=== PATIENT | female | born 1955 | race Caucasian/White ===

== ENCOUNTER 2017-07-21 11:22 | Outpatient (CLI) | payer OTHER | END 2017-07-21 11:23 | disposition home or self-care (01) | LOC: BICMAMMO 11:22 | PROVIDERS: ATTEND Obstetrics & Gynecology | DX: Z12.31 Encounter for screening mammogram for malignant neoplasm of breast (principal) | CPT/HCPCS: 77063; 77067 ==

== ENCOUNTER 2018-03-26 14:52 | Outpatient (CLI) | payer OTHER ==
--- NOTE | 2018-03-26 16:29 | ULT ---
RIGHT BREAST ULTRASOUND: History: Palpable painful mass along the outer aspect of the right nipple at the 9 o'clock position. Comparison: Mammogram, 03-26-18. Technique: Multiplanar grayscale and color doppler images were obtained in a targeted ultrasound of t he subareolar region of the right breast. FINDINGS: At the area of palpable abnormality, normal appearing breast parenchyma is seen. No cyst is seen. No solid mass is seen. No suspicious shadowing is present. IMPRESSION: BIRADS category 1 - negative. Annual screening mammography is recommended. POS: OFF
== END 2018-03-26 14:53 | disposition home or self-care (01) ==
LOC: BICMAMMO 14:52
PROVIDERS: ATTEND Obstetrics & Gynecology
DX: N63.13 Unspecified lump in the right breast, lower outer quadrant (principal)
CPT/HCPCS: G0279

== ENCOUNTER 2018-07-28 10:22 | Outpatient (CLI) | payer OTHER | END 2018-07-28 10:23 | disposition home or self-care (01) | LOC: BICMAMMO 10:22 | PROVIDERS: ATTEND Obstetrics & Gynecology | DX: Z12.31 Encounter for screening mammogram for malignant neoplasm of breast (principal) | CPT/HCPCS: 77063; 77067 ==

== ENCOUNTER 2019-12-24 10:17 | Outpatient (CLI) | payer MEDICARE ==
--- NOTE | 2019-12-24 11:46 | MMO ---
Bilateral MAMMO Bilat Screen [facility]. CLINICAL HISTORY: Patient is 64 years old and is seen for screening. The patient has no family history of breast cancer. The patient has no personal history of cancer. The patient has a history of right Cyst Aspiration in November, and right Cyst Aspiration in 09/2003 - benign. VIEWS: The views performed were: bilateral craniocaudal with tomosynthesis and bilateral mediolateral oblique with tomosynthesis. FILMS COMPARED: The present examination has been compared to prior imaging studies performed at [facility] on 07/09/2016, 07/21/2017, 03/26/2018 and 07/28/2018. This study has been interpreted with the assistance of computer-aided detection. MAMMOGRAM FINDINGS: The breasts are heterogeneously dense, which could obscure a lesion on mammography. There is a stable area of architectural distortion seen in the upper-outer region of the right breast. There are no suspicious masses, suspicious calcifications, or new areas of architectural distortion. IMPRESSION: THERE IS NO MAMMOGRAPHIC EVIDENCE OF MALIGNANCY. A ROUTINE FOLLOW-UP MAMMOGRAM IN 1 YEAR IS RECOMMENDED. THE RESULTS OF THIS EXAM WERE SENT TO THE PATIENT. ACR BI-RADS Category 2 - Benign finding MAMMOGRAPHY NOTE: 1. A negative mammogram report should not delay a biopsy if a dominant of clinically suspicious mass is present. 2. Approximately 10% to 15% of breast cancers are not detected by mammography. 3. Adenosis and dense breasts may obscure an underlying neoplasm. Reported by: DONNA FAJARDO MD Electonically Signed: [id number]
== END 2019-12-24 10:18 | disposition home or self-care (01) ==
LOC: BICMAMMO 10:17
PROVIDERS: ATTEND Obstetrics & Gynecology
DX: Z12.31 Encounter for screening mammogram for malignant neoplasm of breast (principal); Z98.890 Other specified postprocedural states
CPT/HCPCS: 77063; 77067

== ENCOUNTER 2021-05-07 15:19 | Outpatient (CLI) | payer MEDICARE | END 2021-05-07 15:20 | disposition home or self-care (01) | LOC: BICMAMMO 15:19 | PROVIDERS: ATTEND Obstetrics & Gynecology | DX: Z12.31 Encounter for screening mammogram for malignant neoplasm of breast (principal) | CPT/HCPCS: 77063; 77067 ==

== ENCOUNTER 2022-12-13 19:00 | Outpatient (CLI) | payer MEDICARE | END 2022-12-13 19:01 | disposition home or self-care (01) | LOC: SLEEPLAB 19:00 | PROVIDERS: ATTEND Nurse Practitioner Family | DX: G47.33 Obstructive sleep apnea (adult) (pediatric) (principal) | CPT/HCPCS: 95810 ==

== ENCOUNTER 2024-08-10 13:12 | Outpatient (CLI) | payer MEDICARE | END 2024-08-10 13:13 | disposition home or self-care (01) | LOC: BICMRI 13:12 | PROVIDERS: ATTEND Surgery | DX: C50.411 Malignant neoplasm of upper-outer quadrant of right female breast (principal); N63.11 Unspecified lump in the right breast, upper outer quadrant | CPT/HCPCS: 36415; 82565 ×2; A9577; C8908 ==

== ENCOUNTER 2025-02-24 12:37 | Outpatient (CLI) | payer MEDICARE | END 2025-02-24 12:38 | disposition home or self-care (01) | LOC: BICRAD 12:37 | PROVIDERS: ATTEND Internal Medicine Hematology & Oncology | DX: C50.811 Malignant neoplasm of overlapping sites of right female breast (principal); M81.8 Other osteoporosis without current pathological fracture; T38.6X5A Adverse effect of antigonadotrophins, antiestrogens, antiandrogens, not elsewhere classified, initial encounter; J18.1 Lobar pneumonia, unspecified organism | CPT/HCPCS: 71046 ==

== ENCOUNTER 2025-04-05 11:30 | Outpatient (CLI) | payer MEDICARE | END 2025-04-05 11:31 | disposition home or self-care (01) | LOC: SCSRAD 11:30 | PROVIDERS: ATTEND Family Medicine | DX: J18.8 Other pneumonia, unspecified organism (principal); R91.8 Other nonspecific abnormal finding of lung field | CPT/HCPCS: 71046 ==

== ENCOUNTER 2025-05-11 11:20 | Outpatient (CLI) | payer MEDICARE | END 2025-05-11 11:21 | disposition home or self-care (01) | LOC: BICRAD 11:20 | PROVIDERS: ATTEND Family Medicine | DX: J18.8 Other pneumonia, unspecified organism (principal) | CPT/HCPCS: 71046 ==